=== PATIENT | female | born 1985 | race Caucasian/White ===

== ENCOUNTER 2021-09-06 00:12 | Emergency (ER) | payer OTHER ==
[~2021-09-06] VITALS: Ht 162.5 cm; Wt 78.9 kg
[~2021-09-06 00:12] MED LIST: ALL-IN-ONE1 TAB PO; ATIVAN2 MG PO; BACTRIM DS 8001 TA1 PO; COLACE100 MG PO; DOXYCYCLINE100 M2 PO; FE-TABS325 MG PO; IBUPROFEN600 MG PO; LEVAQUIN250 MG PO; METHYLERGONOVI0.2 MG PO; NKHM; PYRIDIUM200 MG PO; Percocet 325 MG1 TAB PO; VICODIN ES 7501 TAB PO; ZOFRAN4 MG PO; [UNRECOGNIZED DRUG - OTHER]
== END 2021-09-06 01:04 | disposition left against medical advice (07) ==
LOC: ED 00:12
DX: R61 Generalized hyperhidrosis (principal); R06.02 Shortness of breath; Z53.21 Procedure and treatment not carried out due to patient leaving prior to being seen by health care provider

== ENCOUNTER → 2022-12-04 | Outpatient (CLI) | payer OTHER | END | disposition home or self-care (01) | LOC: RAD 10:26 | PROVIDERS: ATTEND Nurse Practitioner | DX: R06.2 Wheezing (principal) ==